=== PATIENT | female | born 1950 | race Two or more races ===

== ENCOUNTER → 2018-12-19 | Outpatient (CLI) | payer OTHER ==
[~2018-12-19] MED LIST: PANT20TA2 PO; SPIR100T4 PO
--- NOTE | 2018-12-19 15:43 | RAD ---
Examination: MRI of the left forefoot without contrast HISTORY: History of the great toe laceration, chronic ulcer. COMPARISON: None available Technique: Multiplanar, multisequence MR imaging of the left forefoot was performed without contrast FINDINGS: The alignment of the metatarsophalangeal joints, interphalangeal joints grossly appears unremarkable. There is mild increased T2 signal identified in the distal phalanx of the first toe with corresponding low T1 signal. There is a small ulcer identified in the medial aspect of the big toe superiorly. Mild increased T2 signal/edema identified about the first toe. The visualized Lisfranc ligament appears intact. IMPRESSION: 1. Mild increased T2 signal with corresponding low T1 signal identified in the distal phalanx of the first toe without obvious cortical disruption, differential includes bone marrow reactive change or early osteomyelitis. Triphasic bone scan may be useful. 2. Mild increased T2 signal identified in the soft tissue of the big toe could be edema or infection. Electronically signed by: Walter Sheppard MD (12/19/2018 3:40 PM) [email or web address]
== END | disposition home or self-care (01) ==
LOC: MRI 14:11
PROVIDERS: ATTEND Family Medicine
DX: L97.522 Non-pressure chronic ulcer of other part of left foot with fat layer exposed (principal)
CPT/HCPCS: 73718

== ENCOUNTER 2019-02-19 08:52 | Outpatient (CLI) | payer OTHER ==
[2019-02-19] VITALS (10 sets, daily range): BP systolic 103–141; BP diastolic 43–64
[~2019-02-19] VITALS: Ht 160 cm; Wt 55.8 kg
[2019-02-19] MEDS ORDERED: SPIR100T4 PO (09:03)
[2019-02-19] MEDS ORDERED: PANT20TA2 PO (09:03)
[2019-02-19 09:42] LABS: CALCIUM 9.8 mg/dL (8.5-10.1); CREATININE 1.9 mg/dL (0.6-1.0); GFR 26.3; POTASSIUM 4.5 mmol/L (3.5-5.1)
[2019-02-19 09:47] LABS: BASO % 1 % (0-3); EOS # 0.2 x10^3/uL (0.0-0.7); EOS % 4 % (0-3); HEMATOCRIT 27.2 % (36.0-47.0); HEMOGLOBIN 9.5 g/dL (12.0-15.5); LYMPH # 0.6 x10^3/uL (1.0-4.8); LYMPH % 17 % (24-48); MEAN CORPUSCULAR HEMOGLOBIN 34 pg (25-35); MEAN CORPUSCULAR HGB CONC 35 g/dL (31-37); MEAN CORPUSCULAR VOLUME 97 fL (79-100); MONO # 0.3 x10^3/uL (0.0-1.1); MONO % 7 % (0-9); NEUT # 2.7 x10^3uL (1.8-7.7); NEUT % 72 % (31-73); PLATELET COUNT 105 x10^3/uL (140-400); RED BLOOD COUNT 2.82 x10^6/uL (3.50-5.40); RED CELL DISTRIBUTION WIDTH 13.7 % (11.5-14.5); WHITE BLOOD COUNT 3.7 x10^3/uL (4.0-11.0)
[2019-02-19 09:49] LABS: ALBUMIN 3.6 g/dL (3.4-5.0); ALBUMIN/GLOBULIN RATIO 0.8 (1.0-1.7); TOTAL BILIRUBIN 0.5 mg/dL (0.2-1.0)
[2019-02-19 09:55] LABS: PROTHROMBIN TIME PATIENT 15.5 SEC (11.7-14.0)
[2019-02-19] MEDS ORDERED: MIDAZOLAM HCL/PF 2 MG/2 ML VIAL. ONE (10:39)
[2019-02-19] MEDS ORDERED: LIDOCAINE WITH 8.4% SOD BICARB 3 ML DISP.SYRIN. ONE (10:39)
[2019-02-19] MEDS ORDERED: NALOXONE 0.4 MG/ML VIAL. ONE (10:40)
[2019-02-19] MEDS ORDERED: fentaNYL PF VIAL 100 MCG/2 ML VIAL ONE (10:40)
[2019-02-19] MEDS ORDERED: FLUMAZENIL 0.5 MG/5 ML VIAL. IV ONE (10:40)
[2019-02-19] MEDS ORDERED: fentaNYL PF VIAL 100 MCG/2 ML VIAL IV ONE (11:00)
[2019-02-19] MEDS ORDERED: LIDOCAINE WITH 8.4% SOD BICARB 3 ML DISP.SYRIN. IJ ONE (11:00)
[2019-02-19] MEDS ORDERED: MIDAZOLAM HCL/PF 2 MG/2 ML VIAL. IV ONE (11:00)
--- NOTE | 2019-02-19 11:59 | RAD ---
CT-guided bone marrow biopsy. 02/19/2019 11:53 AM Indication: Thrombocytopenia Discussion: The risks and benefits of the procedure, including but not limited to, bleeding and infection were discussed patient. Informed consent was obtained. The patient was brought to the CT scanner and placed in the prone position. A timeout procedure was performed. [employer] CT imaging of the pelvis demonstrated left ilium amenable to bone marrow biopsy. The overlying soft tissues were prepped and draped using maximum sterile barrier technique. 1% lidocaine without epinephrine was administered for local anesthesia. Under intermittent CT guidance, an OncControl needle was advanced into the bone marrow of the left iliac crest. 2 Aspirates and 1 core biopsy samples were obtained. Samples were delivered to pathology was present at the time of procedure. The needle was removed and manual pressure held to achieve hemostasis. No immediate complications were identified. The procedure was performed under conscious sedation including continuous cardiopulmonary monitoring via dedicated sedation nurse. Sedation time: 20 minutes Impression: Successful CT-guided bone marrow biopsy of the left iliac crest . PQRS Compliance Statement: One or more of the following individualized dose reduction techniques were utilized for this examination: 1. Automated exposure control 2. Adjustment of the mA and/or kV according to patient size 3. Use of iterative reconstruction technique
--- NOTE | 2019-02-19 12:30 | NUR ---
pt discharged home with family. instructions reviewed with pt and family
--- NOTE | 2019-03-01 10:07 | PATHOLOGY ---
[facility] Accession Number: [id number] . 01 Material submitted: . PART A: bone - BONE MARROW BIOPSY PART B: bone - BONE MARROW CLOT PART C: bone - BONE MARROW ASPIRATE SLIDES PART D: bone - PERIPHERAL BLOOD SMEAR PART E: bone - BONE MARROW FLOW . 01 Clinical history: . History of pancytopenia, cirrhosis, varices, ascites, splenomegaly, and renal insufficiency; thrombocytopenia . 02 Diagnosis: Peripheral smear: - Normocytic normochromic anemia, mild. - Leukopenia, mild. - Thrombocytopenia, mild. . Bone marrow, aspirate smears, clot section, and core biopsy: - Normocellular to focally mildly hypercellular marrow showing trilineage hematopoiesis, no significant dyspoiesis, and adequate megakaryocytes. - Focal presence of reticuloendothelial iron stores. . (JPM:gilbert; 02/27/2019) MBR/02/27/2019 . 02 Comment: The peripheral smear shows mild pancytopenia with mild leukopenia, mild normocytic normochromic anemia, and mild thrombocytopenia. The bone marrow is normocellular to focally mildly hypercellular and shows trilineage hematopoiesis, no significant dyspoiesis, and adequate megakaryocytes. Flow cytometric analysis shows no immunophenotypic evidence of a lymphoproliferative disorder, acute leukemia, increase in blasts, or plasma cell neoplasm. The pancytopenia in this case is most likely due to cirrhosis and splenomegaly. (JPM:gilbert; 02/27/2019) . Special stains performed: Iron stain on C1, B1 and B2 Reticulin stain on A1. . 02 Electronically signed: . Hiram Terry MD, Pathologist NPI- [id number] . 01 Gross description: . A. The specimen is received in formalin, labeled "Magalie Bright, BM BX". Received is a single needle core of light verma bone measuring 0.8 cm in length by 0.3 cm in diameter. Also received within the specimen container is a slight amount of blood coagulum measuring 1.0 x 0.6 x 0.1 cm in aggregate dimensions. The specimen is submitted entirely in cassette A1, following light decalcification. . B. The specimen is received in formalin, labeled "Magalie Bright BM aspirate clot". Received is blood coagulum measuring 3.6 x 3.5 x 0.5 cm in aggregate dimensions. The specimen is filtered and entirely submitted in cassette B1 and B2. (CAA; 02/19/2019) QAC/QAC . 02 Microscopic: . Laboratory Data: The WBC count is 3.7 K/CMM, and the automated WBC differential reveals 72% neutrophils, 17% lymphs, 7% monos, 4% eos, and 1% baso. The RBC count is 2.82 M/CMM, hemoglobin 9.5 G/DL, hematocrit 27.2%, MCV 97 FL, MCH 34 PG, MCHC 35 G/DL, and the RDW is 13.7%. The platelet count is 105 K/CMM. Additional laboratory studies are obtained from Dr. Portillo' office. The serum copper is 1.67 UG/ML. Serum protein electrophoresis reveals a normal electrophoretic pattern. Peripheral blood submitted for flow cytometry shows no phenotypic evidence of Paroxysmal Nocturnal Hemoglobinurea. Serum immunofixation shows no paraprotein. Serum folate is greater than 23.8 NG/ML. The serum iron is 69 UG/DL, TIBC 413 UG/DL, saturation 17%, and serum ferritin 45 NG/ML. The vitamin B12 is greater than 7,500 PG/ML. . Peripheral Smear: The peripheral smear is reviewed. The WBC count is mildly decreased. The WBC differential reveals a predominance of segmented neutrophils, with smaller populations of lymphocytes and monocytes and several eosinophils noted. Neutrophils do not show dysplastic changes. There is no significant neutrophilic left shift. There are no circulating blasts. There is no leukoerythroblastic reaction. Red blood cells predominantly appear normochromic and normocytic. Red blood cells show no significant anisocytosis and range from normocytic to slightly macrocytic. Red blood cells show only mild poikilocytosis with a few ovalocytes and occasional teardrop red blood cells noted. Platelets are mildly decreased and appear normal in morphology. . Aspirate Smears: Four Harper's-stained smears and one iron-stained smear are examined. The smears are bloody, sparsely cellular, and devoid of marrow particles. They do reveal hemodiluted hematopoietic precursors consisting predominantly of granulocytic and erythroid precursors. Megakaryocytes are not identified. Erythroid precursors appear normoblastic. There no megaloblastic or obvious dysplastic changes. Granulocytic precursors also morphologically appear normal with no obvious dysplastic changes. There is no apparent increase of blasts. There is also no apparent increase of lymphocytes or plasma cells. There are no cells foreign to the marrow. The iron stain is insufficient for evaluation of iron stores due to an absence of marrow particles. . Bone Marrow Biopsy and Clot Section: Sections of the bone marrow biopsy reveal small segments of bone marrow showing areas of disruption and hemorrhage. As such, it is difficult to determine cellularity. Preserved areas likely range between 20-30% and 60% cellular. The clot sections contain a few marrow particles, which range between 30% and 50-60% cellular. There appears to be a good admixture of erythroid and granulocytic precursors, which are present in varying stages of maturation. There is no apparent increase of blasts. Megakaryocytes appear focally adequate in number and are of variable ploidy. Plasma cells do not appear increased. There are no abnormal lymphoid aggregates, granulomas, or cells foreign to the marrow. . A reticulin stain obtained on the biopsy shows no significant increase of reticulin fibers. The iron stain of the clot section contains only a few marrow particles and does show a small focus of stainable iron stores. No ringed sideroblasts are identified. . Special Studies: Bone marrow submitted for flow cytometry has a viability of 98.1%. Granulocytes comprise 88.2% of total cells and show phenotypic evidence of maturation. Monocytes comprise 3.1% of total cells. CD34 positive cells comprise 1.1% of total cells. Plasma cells comprise 0.3% of total cells and are not increased. Lymphocytes comprise 3.0% of total cells. T-cells comprise 74% of lymphoid cells and show a CD4/CD8 ratio of 0.9. NK-cells comprise 9% of lymphoid cells. Mature B-cells comprise 16% of lymphoid cells and are polyclonal with a kappa:lambda ratio of 0.9. . (JPM:dagmar/gilbert; 02/27/2019) . 02 Pathologist provided ICD-10: D72.819, D69.6, D64.9, D75.89 . 02 CPT . 396715, 946319, 523185, 403618, 416425, 896990, [id number], 144268 Specimen Comment: A courtesy copy of this report has been sent to Specimen Comment: [phone], , . Specimen Comment: Report sent to ,DR PORTILLO / DR PAINTER Specimen Comment: A duplicate report has been generated due to demographic updates. Performed at: [address] [facility] [address], [place] [id number] MD Kian Parker MD Phone: [phone] Performed at: 02 [facility] [place] [address], [place] [id number] MD Hiram Terry MD Phone: [phone]
== END 2019-02-19 12:30 | disposition home or self-care (01) ==
LOC: INTRAD 08:52
PROVIDERS: ATTEND Internal Medicine Hematology & Oncology
DX: D69.6 Thrombocytopenia, unspecified (principal); D61.9 Aplastic anemia, unspecified
CPT/HCPCS: 36415; 38222; 77012; 80053; 85025; 85610; 88184; 88185; 88237; 99152; J2250; J3010; 88305; 88311; 88313

== ENCOUNTER → 2019-04-25 | Outpatient (CLI) | payer OTHER ==
[2019-02-19 12:15] VITALS: BP 103/51
--- NOTE | 2019-04-25 15:50 | RAD ---
FOOT LEFT 3V 04/25/2019 12:00 AM INDICATION: Left foot pain and swelling with no known injury. COMPARISON: None available. TECHNIQUE: 3 views of the left foot are provided. FINDINGS: There is no acute fracture or dislocation. There is a bipartite medial hallux sesamoid. There is pes planus. Vascular calcifications are present. Osteopenia. Joint spaces are maintained. Soft tissue swelling of the midfoot is identified. There is no soft tissue gas or osseous erosion. IMPRESSION: No acute fracture or dislocation. Osteopenia. Electronically signed by: Gissell Palencia MD (04/25/2019 3:47 PM) [facility]
--- NOTE | 2019-04-25 16:28 | RAD ---
LEFT LOWER EXTREMITY ULTRASOUND WITH DOPPLER 04/25/2019 12:00 AM Clinical Information: Left leg edema and foot pain. Comparison: None. Technique: Multiple grayscale, color Doppler, and spectral Doppler sonographic images of the lower extremity venous structures were obtained. Findings: Greater saphenous vein is patent. The left common femoral, femoral, and popliteal veins exhibit normal compression, respiratory phasicity, and augmentation. No intraluminal thrombi are identified. Color Doppler flow is demonstrated in the left posterior tibial veins. Impression: 1. No evidence of deep venous thrombosis. Electronically signed by: Gissell Palencia MD (04/25/2019 4:25 PM) [email or web address]
== END | disposition home or self-care (01) ==
LOC: RAD 14:24
PROVIDERS: ATTEND Nurse Practitioner Gerontology
DX: M85.872 Other specified disorders of bone density and structure, left ankle and foot (principal); M21.42 Flat foot [pes planus] (acquired), left foot; M20.5X2 Other deformities of toe(s) (acquired), left foot
CPT/HCPCS: 73630; 93971